=== PATIENT | male | born 1990 | race Caucasian/White ===

== ENCOUNTER 2022-09-19 13:28 | Emergency (ER) | payer MEDICAID ==
[~2022-09-19] VITALS: Ht 182.9 cm; Wt 80.8 kg
[2022-09-19 14:47] LABS: URINE AMPHETAMINE SCREEN NEGATIVE (Neg); URINE BARBITUATE SCREEN NEGATIVE (Neg); URINE BENZODIAZEPINES SCREEN NEGATIVE (Neg); URINE CANNABINOID SCREEN POSITIVE (Neg); URINE COCAINE SCREEN NEGATIVE (Neg); URINE METHADONE SCREEN NEGATIVE (Neg); URINE OPIATE SCREEN NEGATIVE (Neg); URINE PHENCYCLIDINE SCREEN NEGATIVE (Neg)
[2022-09-19] MEDS ORDERED: QUET50TA PO (15:43)
[2022-09-19 15:52] VITALS: BP 125/81
== END 2022-09-19 15:53 | disposition home or self-care (01) ==
LOC: ER 13:28
DX: Z76.0 Encounter for issue of repeat prescription (principal); F31.9 Bipolar disorder, unspecified; F12.90 Cannabis use, unspecified, uncomplicated
CPT/HCPCS: 80305; 99283